=== PATIENT | male | born 1955 | race African-American/Black ===

== ENCOUNTER → 2016-10-13 | Day surgery (SDC) | payer MEDICARE, OTHER ==
[~2016-10-13] MED LIST: APIX5TAB PO; ASPI81TA44 PO; ATOR10TA PO; CARV3.12 PO; CARV6.25 PO; CELE200C PO; COLC0.6T34 PO; EZET10TA3 PO; FURO-68 PO; IV RINGERS,LACTATED 1000ML 1,000 ML IV SCH; LEVO750T31 PO; LOSA25TA PO; PANT40TA5 PO; POTA20TA4 PO; PREG100C PO; PROPOFOL 40 ML IV ONE; SIMV20TA3 PO; SPIR25TA3 PO; TAMS0.4C2 PO
--- NOTE | 2016-10-13 08:54 | PDOC1 ---
HISTORY & PHYSICAL H&P Anirudh Villa [id number] 1955 07/29/2016 03:40 PM 09/28 Suja Juice [facility], [facility] OUR PATIENTS COME FIRST [address] [place] [address] Ph. [phone] Patient: Anirudh Villa Date of : 1955 Date: 07/29/2016 3:40 PM Visit Type: Consult This 60 year old male presents for H/o colorectal polyp. History of Present Illness: 1. H/o colorectal polyp Prior screening: colonoscopy. Risk Factors: h/o colonic polyp. Pertinent negatives include abdominal pain, change in bowel habits, change in stool caliber, constipation, decreased appetite, diarrhea, melena, nausea, rectal bleeding, vomiting, weight gain and weight loss. Additional information: No family history of colon cancer, No family history of Crohn's/colitis, No NSAID/ ASA use and Last colonoscopy 2011. Had multiple colonic polyp removed. INTAKE COMMENTS: Intake Comments: Nurse Note: the pt is here today to schedule a colonoscopy, the pt had colonic polyps in 2011 PROBLEM LIST: Problem Description Onset Date New onset type 2 diabetes mellitus 03/28/2016 Elevated PSA 03/28/2016 Closed fracture of distal end of right femur, unspecified fracture morphology, initial encounter 12/12/2015 Ischemic rest pain of lower extremity 12/12/2015 Liver function tests abnormal 12/28/2013 Acute on chronic diastolic congestive heart failure 12/12/2015 Medicare advantage coverage 02/28/2014 Arthritis 06/14/2012 BPH w/o urinary obstruction 07/16/2011 Congenital syringomyelia 03/28/2016 Syringomyelia 03/28/2016 Urinary tract infectious disease 06/14/2012 Disorder of bone and articular cartilage 10/18/2012 Benign essential hypertension 07/16/2011 Hyperlipidemia 07/16/2011 Benign prostatic hyperplasia 07/16/2011 PAST MEDICAL/SURGICAL HISTORY (Detailed) Disease/disorder Onset Date Management Date Comments Arthrocentesis of the right wrist joint Carpal tunnel release 2006 Arthritis cervical disc surgery 2010 neck pain Chronic gastritis 11/03/2011 Colonic polyps 06/24/2012 colonoscopy with biopsy 06/24/2012 Duodenal polyp 03/18/2012 EGD with biopsy 03/18/2012 Eosinophilic esophagitis 11/17/2011 Esophageal varices 03/18/2012 Esophagitis 12/05/2011 Gastric polyp 12/05/2011 EGD with biopsy 12/05/2011 Gastritis 03/18/2012 Gastroparesis 12/05/2011 Hyperlipidemia Hypertension Internal hemorrhoids 06/24/2012 Limited diverticula 06/24/2012 Osteoarthritis Hip replacements prostrate biopsy 2011 reflux Rotator cuff tear (right) rt wrist fuse 2011 Stenosis of the esophageal junction 11/17/2011 EGD with dilation and biopsy DIAGNOSTICS HISTORY: Test Ordered Interpretation Result completed UPPR GI SCOPE DILATE STRICTR 11/03/2011 Abnormal Imp: Polyp, (bx). Gastritis, ( bx). Esophagitis, (bx). Tubular adenoma. Chronic gastritis. Stenosis of the gastroesophageal junction, (dilation). BX: Eosinophilic esophagitis. 11/03/2011 UPPER GI ENDOSCOPY, BIOPSY 12/05/2011 Abnormal Imp: Duodenal adenoma. Gastroparesis. Esophagitis. Argon plasma coagulation therapy, used for tumor ablation. BX: Tubular adenoma. 12/05/2011 UPPER GI ENDOSCOPY/TUMOR 02/17/2012 abnormal Imp: Duodenal poylp, (bx). Gastritis. Esophageal varices, grade 1-2. BX: Tubular adenoma. 03/18/2012 COLONOSCOPY AND BIOPSY 04/20/2012 abnormal Imp: Polyps, (bx x 2). Limited Diverticula. Internal hemorrhoids. BX: Tubular adenoma, mucosa associated lymphoid aggregate. Hyperplastic polyp. 06/24/2012 Test Ordered Ordering Comments Modifier UPPR GI SCOPE DILATE STRICTR 11/03/2011 Gastroenterology UPPER GI ENDOSCOPY, BIOPSY 12/05/2011 Gastroenterology UPPER GI ENDOSCOPY/TUMOR 02/17/2012 COLONOSCOPY AND BIOPSY 04/20/2012 Medications (Active): Started Medication Directions Instruction Stopped 01/07/2016 atorvastatin 20 mg tablet TAKE 1 TABLET DAILY 12/15/2015 carvedilol 12.5 mg tablet TAKE 1 TABLET BY ORAL ROUTE 2 TIMES EVERY DAY WITH FOOD 12/24/2015 Celebrex 200 mg capsule TAKE 1 CAPSULE BY ORAL ROUTE EVERY DAY 06/13/2016 Eliquis 5 mg tablet TAKE 1 TABLET BY ORAL ROUTE 2 TIMES EVERY DAY 12/24/2015 Lasix 40 mg tablet TAKE 1 TABLET TWICE A DAY 07/24/2015 losartan 25 mg tablet take 1 tablet by oral route every day 07/29/2016 Lyrica 75 mg capsule take 1 capsule by oral route 2 times every day 12/24/2015 omeprazole 40 mg capsule,delayed release TAKE ONE CAPSULE BY MOUTH EVERY DAY BEFORE A MEAL 12/15/[address] 20MEQ ER TABLETS TAKE 1 TABLET BY MOUTH DAILY WITH FOOD 08/20/2015 [facility] ASPIRIN 81 MG CHEW CHEW 1 TABLET BY MOUTH EVERY DAY 12/24/2015 TAMSULOSIN 0.4MG CAPSULES TAKE 2 CAPSULES BY MOUTH 30 MINUTES AFTER THE SAME MEAL EACH DAY 07/29/2016 triamcinolone acetonide 0.1 % topical ointment apply by topical route 2 times every day a thin layer to the affected area(s) 12/24/2015 Zetia 10 mg tablet TAKE 1 TABLET BY MOUTH DAILY Allergies: Ingredient Reaction Medication Name Comment HYDROCODONE hard to breath REVIEW OF SYSTEMS System Neg/Pos Details Constitutional Negative Chills, fever, malaise, weight gain and weight loss. ENMT Negative Sore throat. Eyes Negative Double vision. Respiratory Negative Dyspnea and wheezing. Cardio Negative Chest pain and irregular heartbeat/palpitations. GI Positive See HPI. GI Negative Abdominal pain, change in bowel habits, change in stool caliber, constipation, decreased appetite, diarrhea, melena, nausea, see HPI, rectal bleeding and vomiting. Negative Dysuria and hematuria. Endocrine Negative Cold intolerance and heat intolerance. Psych Negative Anxiety. Integumentary Negative Hives and rash. MS Negative Joint pain. Jung/Lymph Negative Easy bleeding and easy bruising. Allergic/Immuno Negative Food allergies. VITAL SIGNS Time BP mm/Hg Pulse /min Resp /min Temp F Ht ft Ht in Ht cm Wt lb Wt kg BMI kg/ m2 BSA m2 O2 Sat% 2:48 PM 120/76 71 97.9 5.0 11.00 180.34 252.40 114.487 35.20 92 Time Measured by 2:48 PM [facility] PHYSICAL EXAM: Exam Findings Details Constitutional Normal Well developed. Eyes Normal Conjunctiva - Right: Normal, Left: Normal. Sclera - Right: Normal, Left: Normal. Nasopharynx Normal Lips/teeth/gums - Normal. Neck Exam Normal Inspection - Normal. Thyroid gland - Normal. Respiratory Normal Inspection - Normal. Auscultation - Normal. Cardiovascular Normal Regular rate and rhythm. No murmurs, gallops, or rubs. Vascular Normal Pulses - Carotids: Normal, Femoral: Normal, Dorsalis pedis: Normal. Abdomen Normal Inspection - Normal. Anterior palpation - No guarding. No abdominal tenderness. No hepatic enlargement. No splenic enlargement. No hernia. No ascites. Skin Normal Inspection - Normal. Extremity Normal No edema. Psychiatric * Oriented to time, place, person and situation. Psychiatric Normal Appropriate mood and effect. Assessment/Plan # Detail Type Description 1. Assessment History of colon polyps (Z86.010). Patient Plan schedule colonoscopy at Plan Orders Further diagnostic evaluations ordered today include(s) Colonoscopy to be performed today. He is to schedule a follow-up visit with Juan Manuel Nelson MD upon completion of work-up Electronically signed by: Juan Manuel Nelson MD 07/29/2016 04:12 PM Document generated by: Juan Manuel Nelson 07/29/2016 04:12 PM Renetta Lockhart MD, Family Practice; Jamin Cabrales MD Internal Medicine; Emanuel Galvan MD, Internal Medicine; Corina Nelson MD Internal Medicine; Juan Manuel Nelson MD, Gastroenterology; Rolo Cedeño MD, Rheumatology, S. Omar Bustos, Physical Medicine/Rehab JIron Helm APRN ------ 10/13/2016 Patient seen and examined. No change in the history and physical. JUAN MANUEL NELSON MD Oct 13, 2016 08:54
--- NOTE | 2016-10-13 09:36 | PDOC4 ---
GI OP Report - Dr. Gutierrez Date/Time DATE: 10/13/16 TIME: 09:35 Attending Physician Juan Manuel Gutierrez MD Referring Physician Indications History of colon polyp Pre-Op see anesthesia note. Procedures colonoscopy Findings Normal colonoscopy. Plan - Discharge patient to home. - Patient has a contact number available for emergencies. The signs and symptoms of potential delayed complications were discussed with the patient. Return to normal activities tomorrow. Written discharge instructions were provided to the patient. - Resume regular diet. - Continue present medications. - Repeat colonoscopy in 5 years for surveillance. - Return to my office as needed. JUAN MANUEL GUTIERREZ MD Oct 13, 2016 09:36
[2016-10-13 09:59] VITALS: BP 116/69
== END ==
LOC: ENDOS 07:41
PROVIDERS: ATTEND Internal Medicine Gastroenterology
DX: Z86.010 Personal history of colon polyps (principal); K21.9 Gastro-esophageal reflux disease without esophagitis; E78.5 Hyperlipidemia, unspecified; M19.90 Unspecified osteoarthritis, unspecified site; I10 Essential (primary) hypertension
CPT/HCPCS: 45378; J2704

== ENCOUNTER 2018-07-21 15:30 | Inpatient (IN) | payer MEDICARE, OTHER ==
[~2018-07-21] VITALS: Ht 180.3 cm; Wt 115.8 kg
[~2018-07-21 15:30] MED LIST changes: -ASPI81TA44 PO; +ASPI81TA59 PO; +EZET10TA18 PO; -EZET10TA3 PO; -IV RINGERS,LACTATED 1000ML 1,000 ML IV SCH; -PROPOFOL 40 ML IV ONE; -SPIR25TA3 PO; +SPIR25TA5 PO
[2018-07-21 16:53] VITALS: BP 128/63
[2018-07-21] MEDS ORDERED: ASPI-612 PO (17:10)
[2018-07-21] MEDS ORDERED: ATOR40TA59 PO (17:11)
[2018-07-21] MEDS ORDERED: BICA50TA47 PO (17:15)
[2018-07-21] MEDS ORDERED: EZET10TA18 PO (17:15)
[2018-07-21] MEDS ORDERED: FLUT9.9S NS (17:15)
[2018-07-21] MEDS ORDERED: LIDO30CR TP (17:17)
[2018-07-21] MEDS ORDERED: FURO40TA4 PO (17:17)
[2018-07-21] MEDS ORDERED: LOSA25TA5 PO (17:22)
[2018-07-21] MEDS ORDERED: OMEP40CA5 PO (17:22)
[2018-07-21] MEDS ORDERED: POLY17PO29 PO (17:22)
[2018-07-21] MEDS ORDERED: SPIR25TA5 PO (17:22)
[2018-07-21] MEDS ORDERED: OXYB5TAB PO (17:22)
[2018-07-21] MEDS ORDERED: SENN-79 PO (17:22)
[2018-07-21] MEDS ORDERED: OXYC-323 PO (17:22)
[2018-07-21] MEDS ORDERED: INSULIN LISPRO 300 UNITS/3 ML INSULN.PEN. SQ ONE (17:45)
[2018-07-21] MEDS ORDERED: DEXTROSE 50% 25 GM / 50ML DISP.SYRIN. IV PRN (18:00)
[2018-07-21] MEDS: INSULIN LISPRO 300 UNITS/3 ML INSULN.PEN. SQ SCH ×2 (18:26→18:31)
[2018-07-21 18:43] LABS: BASO % 1 % (0-3); EOS % 1 % (0-3); HEMATOCRIT 34.8 % (39.0-53.0); HEMOGLOBIN 12.1 g/dL (13.0-17.5); LYMPH # 0.9 x10^3/uL (1.0-4.8); LYMPH % 25 % (24-48); MEAN CORPUSCULAR HEMOGLOBIN 30 pg (25-35); MEAN CORPUSCULAR HGB CONC 35 g/dL (31-37); MEAN CORPUSCULAR VOLUME 88 fL (79-100); MONO # 0.3 x10^3/uL (0.0-1.1); MONO % 9 % (0-9); NEUT # 2.2 x10^3uL (1.8-7.7); NEUT % 64 % (31-73); PLATELET COUNT 149 x10^3/uL (140-400); RED BLOOD COUNT 3.98 x10^6/uL (4.30-5.70); RED CELL DISTRIBUTION WIDTH 13.5 % (11.5-14.5); WHITE BLOOD COUNT 3.5 x10^3/uL (4.0-11.0)
--- NOTE | 2018-07-21 18:54 | EKG ---
[facility] [address] [place] [address] Test Date: 2018-07-21 Test Time: 18:49:42 Pat Name: CELY VALLECILLO Department: Room: [facility] Gender: M Brand Engineer: : 1955 Requested By: LOU DUVAL Order Number: [id number] Reading MD: [place] Measurements Intervals [place] Rate: 67 P: 52 NE: 178 QRS: 6 QRSD: 86 T: 6 QT: 408 QTc: 434 Interpretive Statements SINUS RHYTHM NORMAL ECG Electronically Signed On 07-22-2018 11:34:01 CDT by [place]
[2018-07-21 19:00] VITALS: BP 103/53
[2018-07-21 19:00] LABS: ALBUMIN 3.6 g/dL (3.4-5.0); ALBUMIN/GLOBULIN RATIO 0.8 (1.0-1.7); CALCIUM 9.1 mg/dL (8.5-10.1); CREATININE 1.6 mg/dL (0.7-1.3); GFR 53.3; POTASSIUM 4.3 mmol/L (3.5-5.1); TOTAL BILIRUBIN 0.6 mg/dL (0.2-1.0); TOTAL PROTEIN 8.1 g/dL (6.4-8.2)
[2018-07-21 19:01] LABS: BILIRUBIN,URINE NEGATIVE (NEG); CLARITY,URINE CLEAR; COLOR,URINE YELLOW; NITRITE,URINE NEGATIVE (NEG); PROTEIN,URINE NEGATIVE (NEG-TRACE); UROBILINOGEN,URINE 0.2 mg/dL (0.2 mg/dL)
[2018-07-21 19:10] LABS: BACTERIA,URINE 0 /HPF (0-FEW); RBC,URINE 0 /HPF (0-2); WBC,URINE 0 /HPF (0-4)
[2018-07-21] MEDS ORDERED: INSULIN LISPRO 300 UNITS/3 ML INSULN.PEN. SQ STA (20:55)
[2018-07-21] MEDS ORDERED: INSULIN GLARGINE 300 UNITS/3 ML INSULN.PEN. SQ SCH (21:00)
[2018-07-21] MEDS ORDERED: oxyCODONE/APAP 5/325 1 TAB TABLET PO PRN (21:45)
[2018-07-21 23:00] VITALS: BP 101/55
[2018-07-22] MEDS ORDERED: INSULIN LISPRO 300 UNITS/3 ML INSULN.PEN. SQ ONE (00:15)
[2018-07-22 03:11] VITALS: BP 125/55
[2018-07-22] MEDS: IV NORMAL SALINE 1000ML BAG 1,000 ML IV SCH ×2 (05:17→07:05)
[2018-07-22 05:27] LABS: CALCIUM 9.4 mg/dL (8.5-10.1); CREATININE 1.2 mg/dL (0.7-1.3); GFR 74.2; POTASSIUM 3.5 mmol/L (3.5-5.1)
[2018-07-22 05:30] LABS: CHOLESTEROL/HDL RATIO 4.6
[2018-07-22 07:00] VITALS: BP 146/69
[2018-07-22] MEDS ORDERED: PANTOPRAZOLE 40 MG TABLET.DR. PO SCH (07:30)
[2018-07-22] MEDS ORDERED: ASPIRIN ENTERIC COATED 81 MG TABLET.DR. PO SCH (08:00)
[2018-07-22] MEDS ORDERED: CARVEDILOL 6.25 MG TABLET. PO SCH (08:00)
--- NOTE | 2018-07-22 08:11 | RAD ---
Portable chest, 07/21/2018: HISTORY: Hyperglycemia, hypertension Comparison is made to a study from 11/09/2014. The heart size is normal. There is calcific plaquing of the aorta. Calcified mediastinal lymph nodes are present in the right paratracheal region. The pulmonary vascularity is normal. No pulmonary infiltrate is seen. There is no evidence of pleural fluid. A surgical plate and screws is evident in the lower cervical spine. IMPRESSION: No acute cardiopulmonary abnormality is detected. Electronically signed by: Andre Perez MD (07/22/2018 8:08 AM) [facility]
--- NOTE | 2018-07-22 08:12 | RAD ---
Bilateral lower extremity venous ultrasound, 07/22/2018: History: Bradley pain Duplex evaluation of the deep veins in the lower extremities was performed including grayscale, color-flow and spectral Doppler analysis. The femoral and popliteal veins demonstrate normal compressibility and normal responses to distal augmentation maneuvers. Color imaging of those vessels shows no evidence of intraluminal clot. The visualized deep veins in both calves are patent. IMPRESSION: There is no sonographic evidence of deep vein thrombosis in either lower extremity. Electronically signed by: Andre Perez MD (07/22/2018 8:10 AM) [facility]
[2018-07-22] MEDS: INSULIN LISPRO 300 UNITS/3 ML INSULN.PEN. SQ SCH ×4 (08:15→12:11)
[2018-07-22] MEDS ORDERED: CELECOXIB 100 MG CAPSULE. PO SCH (09:00)
[2018-07-22] MEDS ORDERED: SENNOSIDES 8.6 MG TABLET PO SCH (09:00)
[2018-07-22] MEDS ORDERED: BICALUTAMIDE 50 MG TABLET PO SCH (09:00)
[2018-07-22] MEDS ORDERED: LOSARTAN POTASSIUM 25 MG TABLET. PO SCH (09:00)
[2018-07-22] MEDS ORDERED: TAMSULOSIN 0.4 MG CAP.ER.24H. PO SCH (09:00)
[2018-07-22] MEDS ORDERED: FLUTICASONE 50MCG/NASAL SPRAY 16GM BOTTLE. NS SCH (09:00)
[2018-07-22] MEDS ORDERED: EZETIMIBE 10 MG TABLET. PO SCH (09:00)
[2018-07-22] MEDS ORDERED: OXYBUTYNIN CHLORIDE 5 MG TABLET PO SCH (09:00)
[2018-07-22] MEDS ORDERED: SPIRONOLACTONE 25 MG TABLET PO SCH (09:00)
[2018-07-22] MEDS ORDERED: POLYETHYLENE GLYCOL 3350 17 GM PACKET. PO SCH (09:00)
[2018-07-22 10:00] VITALS: BP 111/61
--- NOTE | 2018-07-22 10:08 | PDOC ---
Provider Note Provider Note Pt seen.H&P dictated. #[id number]. LOU DUVAL MD Jul 22, 2018 10:08
[2018-07-22] MEDS ORDERED: INSU100I11 SQ (10:11)
[2018-07-22] MEDS ORDERED: INSU100I13 SQ (10:11)
--- NOTE | 2018-07-22 10:52 | RAD ---
2 views of each tib-fib without comparison for bilateral edge pain. FINDINGS: On the right, the femoral medullary amol is noted. A patellar enthesophyte is seen. Extensive atherosclerotic calcifications are seen about the knee. There is mild osteoarthritis of both the tibiotalar joint and medial compartment of the knee. Findings are symmetrical on the left as well. No radiopaque foreign bodies are seen. No fracture or acute osseous abnormality of either tib-fib is evident. IMPRESSION: 1. No acute osseous abnormality of either tib-fib. 2. Extensive atherosclerosis. 3. Mild degenerative change of both knees and ankles. Electronically signed by: Tab Case MD (07/22/2018 10:49 AM) [id number]
--- NOTE | 2018-07-22 11:12 | HP ---
ADMIT DATE: 07/21/2018 PATIENT LOCATION: 519. REASON FOR ADMISSION TO THE HOSPITAL: Uncontrolled blood sugars, more than 500, new onset of diabetes. HISTORY OF PRESENT ILLNESS: The patient is a 62-year-old male patient who was diagnosed to have prostate cancer and had radiation treatment 3 months ago. He was having more frequent urination and seen Urology, did a urine test, shows lot of sugar in the urine, was referred to primary care's and saw me in the office. Yesterday's blood sugar was more than 500 and the patient was having very frequent urination and dehydration. He was admitted to the hospital for further investigation and treatment. Chest x-ray was negative. EKG negative. His bicarbonate was normal. Sugar was 478. The patient was put on IV fluids, insulin 10 units 3 times daily and 10 units of Lantus at bedtime. Sugars came down nicely this morning to less than 200. He was having pain in the leg last night, had a venous Doppler and it was negative for blood clots. PAST MEDICAL HISTORY: History of hypertension, hyperlipidemia, prostate cancer and had ablation for atrial fibrillation. There is a rotator cuff injury to the shoulder. PAST SURGICAL HISTORY: The patient had EGD colon, radiation for prostate cancer and bilateral hip replacements. SOCIAL HISTORY: He used to smoke and drink in the past, has not done for a while. The patient is disabled, walks with a cane. FAMILY HISTORY: Positive for diabetes and hypertension. ALLERGIES: None. MEDICATIONS AT HOME: Furosemide 40 mg daily, Lidoderm daily, potassium 20 mEq twice a day, aspirin 81 mg daily, atorvastatin 40 mg daily, Casodex 50 mg daily for prostate cancer, Coreg 6.25 twice a day, Celebrex 200 mg daily, Zetia 10 mg daily, Flonase daily, losartan 25 mg daily, omeprazole 40 mg daily, oxybutynin 5 mg daily, oxycodone q. 6h., MiraLax 17 grams daily, senna daily, spironolactone 25 mg daily and Flomax 0.4 daily. REVIEW OF SYMPTOMS: CARDIAC RODRIGES: No chest pain. GASTROINTESTINAL: No nausea or vomiting. GENITOURINARY: Complains of frequent urination, fullness in the bladder. Rest of the 14 systems were reviewed and negative. PHYSICAL EXAMINATION: GENERAL: On examination, the patient is not in any distress. VITAL SIGNS: Temperature 98, pulse 56, respirations 16, blood pressure 128/63 and 96 on room air. HEENT: Head is atraumatic. Pupils equal. Oral cavity, no congestion. NECK: Supple. Thyroid not enlarged. JVD not elevated. CHEST: Symmetrical. CARDIOVASCULAR: S1, S2. LUNGS: Clear to auscultation. ABDOMEN: Soft. Bowel sounds present. No mass palpable. EXTERNAL GENITALIA: No [place]. RECTAL EXAMINATION: Deferred. EXTREMITIES: No calf tenderness, no edema. NEUROLOGICAL EXAMINATION: Moving all extremities. No focal deficits noted. LABORATORY DATA: Shows a white count of 3, hemoglobin 12 and platelets 149,000. Electrolytes: Sodium 135, potassium 4.3, chloride 99, bicarbonate 24, anion gap 12, BUN 24, creatinine 1.6, came down to 1.2 today and sugar 478. LFTs were normal. Cholesterol was normal. TSH was normal. A1c is pending. Urine was a lot of sugar, more than 1000 sugar, negative for leukocyte, nitrite, wbc's and rbc's. Chest x-ray was negative. Ultrasound of the leg was negative. He had an x-ray of the tibia and fibula, no fractures. FINAL IMPRESSION: 1. New onset of diabetes. 2. Hyperglycemia. Sugars 500 in the office. 3. Recent prostate cancer, had radiation treatment; on hormone medications for prostate cancer. 4. Arthritis. 5. History of coronary artery disease. 6. History of chronic systolic heart failure, stable. PLAN: At this time, the patient is admitted to the hospital, hydrated with IV. We will start on insulin 10 units with each meal and 10 units at bedtime and sugars came down to 200 and below. The patient is feeling better. Education on diabetes, he should be able to go home today and follow as outpatient diabetic education. LOU DUVAL MD DR: AKOSUA/john JOB#: [id number] / [id number]
[2018-07-22] MEDS ORDERED: ATORVASTATIN CALCIUM 40 MG TABLET. PO SCH (21:00)
[2018-07-22] MEDS ORDERED: ENOXAPARIN 40 MG/0.4 ML SYRINGE. SQ SCH (21:00)
[2018-07-23 10:28] LABS: HEMOGLOBIN A1C 15.2
== END 2018-07-22 15:10 | disposition home or self-care (01) | DRG 637 ==
LOC: 5 NORTH 16:00
PROVIDERS: ADMIT Internal Medicine; ATTEND Internal Medicine
DX: E11.65 Type 2 diabetes mellitus with hyperglycemia (principal); E11.00 Type 2 diabetes mellitus with hyperosmolarity without nonketotic hyperglycemic-hyperosmolar coma (NKHHC); I50.22 Chronic systolic (congestive) heart failure; E78.5 Hyperlipidemia, unspecified; I48.91 Unspecified atrial fibrillation; I25.10 Atherosclerotic heart disease of native coronary artery without angina pectoris; Z96.643 Presence of artificial hip joint, bilateral; I11.0 Hypertensive heart disease with heart failure; Z79.4 Long term (current) use of insulin; Z82.49 Family history of ischemic heart disease and other diseases of the circulatory system; Z83.3 Family history of diabetes mellitus; Z85.46 Personal history of malignant neoplasm of prostate; Z87.891 Personal history of nicotine dependence; Z92.3 Personal history of irradiation; Z79.899 Other long term (current) drug therapy; M19.90 Unspecified osteoarthritis, unspecified site
CPT/HCPCS: 36415; 71045; 73590; 80048; 80053; 80061; 81001; 82962; 83036; 84443; 85025; 93005; 93970; J1650; J1815; J7030